=== PATIENT | female | born 2000 | race Caucasian/White ===

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

== ENCOUNTER → 2023-03-09 13:23 | Outpatient (BNVA) | payer OTHER, SELFPAY | PROVIDERS: Family Provider Family Medicine; PCP Family Medicine; Visit Provider Emergency Medicine | DX: Z57.8 Occupational exposure to other risk factors (principal) | CPT/HCPCS: 86706; 86803; 87340; 87806 ==

== ENCOUNTER → 2024-04-09 10:27 | Outpatient (BNVA) | payer OTHER, SELFPAY | PROVIDERS: Family Provider Family Medicine; PCP Family Medicine; Visit Provider Family Medicine | DX: Z12.4 Encounter for screening for malignant neoplasm of cervix (principal); Z30.41 Encounter for surveillance of contraceptive pills; L70.0 Acne vulgaris; F41.8 Other specified anxiety disorders | CPT/HCPCS: 88175 ==